=== PATIENT | female | born 1995 | race African-American/Black ===

== ENCOUNTER 2024-09-09 07:34 | Emergency (ER) | payer MEDICAID, OTHER ==
[~2024-09-09] VITALS: Ht 165.1 cm; Wt 113.0 kg
[~2024-09-09 07:34] MED LIST: DOXY-286 PO
[2024-09-09 07:46] VITALS: BP 125/67; TEMP 98.2
[2024-09-09 08:16] VITALS: PULSE 86; RESP 18; O2SAT 99
--- NOTE | 2024-09-09 08:23 | ED.PDOC ---
Musculoskeletal HPI Comments A 29 YEAR OLD FEMALE PRESENTS TO THE ED WITH COMPLAINT OF LEFT SHOULDER PAIN THAT RADIATES DOWN LEFT ARM AND CONSTIPATION. PATIENT STATES SHE HAS BEEN EXPERIENCING LEFT SHOULDER PAIN THAT RADIATES DOWN HER LEFT ARM OFF AND ON FOR THE PAST FEW MONTHS WITH HER PAIN RETURNING AGAIN YESTERDAY. PATIENT NOTES SHE HAS ALSO BEEN EXPERIENCING CONSTIPATION DUE TO TAKING IRON SUPPLEMENTS FOR THE PAST FEW DAYS. PATIENT DENIES FEVER, CHILLS, SHORTNESS OF BREATH, CHEST PAIN, ABDOMINAL PAIN, NAUSEA, VOMITING, HEADACHE, OR OTHER COMPLAINTS. NO OTHER SYMPTOMS OR MODIFYING FACTORS AT THIS TIME. PATIENT IS ALERT, ORIENTED X 4, AND HAS STEADY GAIT. Chief Complaint: Upper Extremity Reviewed Notes: Nurses Notes, Medications, Allergies Allergies: Coded Allergies: NO KNOWN ALLERGIES (Unverified , 07/27/24) Home Meds Active Scripts Doxycycline Hyclate (DOXYCYCLINE HYCLATE) 100 Mg Tab, 1 TAB PO BID for 7 Days, #14 TAB 0 Refills Prov:SHELLEY HENDRIX Cole CAMARILLO 07/27/24 Information Source: Patient Mode of Arrival: Ambulatory Location: Left Extremity Location: Arm, Shoulder Timing: Days Prehospital treatment: None Severity: Moderate Able to Move Extremity: Yes Bear Weight: Fully Pain: Moderate Mechanism: No Trauma, Spontaneous Circumstances: Spontaneous Onset of Symptoms: Spontaneous Symptoms: Pain DVT Risk Factors: NONE Last Tetanus: Unknown Associated signs and symptoms: Shoulder pain, Arm pain, Other (CONSTIPATION) Past Medical History PAST MEDICAL HISTORY: Denies Surgical History: Denies all surgeries BODY FORMER History: No Pertinent BODY FORMER History Family History Family History: Reviewed,noncontributory to illness Social History Smoker: Non-Smoker Alcohol: Denies ETOH Use Drugs: Denies Drug Use Lives In: Home Constitutional: denies: chills, diaphoresis, fatigue, fever, malaise, sweats, weakness, others EENTM: denies: blurred vision, double vision, ear bleeding, ear discharge, ear drainage, ear pain, ear ringing, eye pain, eye redness, hearing loss, mouth pain, mouth swelling, nasal discharge, nose bleeding, nose congestion, nose pain, photophobia, tearing, throat pain, throat swelling, voice changes, others Respiratory: denies: cough, hemoptysis, orthopnea, SOB at rest, shortness of breath, SOB with excertion, stridor, wheezing, others Cardiovascular: denies: chest pain, dizzy spells, diaphoresis, Dyspnea on exertion, edema, irregular heart beat, left arm pain, lightheadedness, palpitations, PND, syncope, others Gastrointestinal: reports: constipated; denies: abdomen distended, abdominal pain, blood streaked bowels, diarrhea, dysphagia, difficulty swallowing, hematemesis, melena, nausea, poor appetite, poor fluid intake, rectal bleeding, rectal pain, vomiting, others Genitourinary: denies: abnormal vagina bleeding, burning, dyspareunia, dysuria, flank pain, frequency, hematuria, incontinence, pain, , vagina discharge, urgency, others Neurological: denies: dizziness, fainting, headache, left sided numbness, left sided weakness, numbness, paresthesia, pre-existing deficit, right sided numbness, right sided weakness, seizure, speech problems, tingling, tremors, weakness, others Musculoskeletal: reports: others (LEFT SHOULDER PAIN THAT RADIATES DOWN LEFT ARM); denies: back pain, gout, joint pain, joint swelling, muscle pain, muscle stiffness, neck pain Integumetry: denies: bruises, change in color, change in hair/nails, dryness, laceration, lesions, lumps, rash, wounds, others Allergic/Immunocompromised: denies: Difficulty Healing, Frequent Infections, Hives, Itching, others Hematologic/Lymphatic: denies: anemia, blood clots, easy bleeding, easy bruisi ng, swollen glands, others Endocrine: denies: excessive hunger, excessive sweating, excessive thirst, exce ssive urination, flushing, intolerance to cold, intolerance to heat, unexplained weight gain, unexplained weight loss, others Psychiatric: denies: anxiety, bipolar disorder, depression, hopeless, panic disorder, schizophrenia, sleepless, suicidal, others All Other Systems: Reviewed and Negative Was a procedure done? Was a procedure done?: No Differential Diagnosis EXT Differential Diagnosis: Sprain, DJD, Strain Other Differential Diagnosis MUSCLE SPASM X-Ray, Labs, Meds, VS Vital Signs Date Time Temp Pulse Resp B/P (MAP) Pulse Ox O2 Delivery O2 Flow Rate FiO2 09/09/24 08:16 86 18 99 Room Air 09/09/24 07:46 98.2 107 18 125/67 (86) 100 98.2 09/09/24 07:46 98.2 107 18 125/67 (86) 100 Images Reviewed?: Images reviewed and evaluated by me Reevaluation 1ST: Improved Patient Education/Counseling: Diagnosis, Treatment, Need For Follow Up Family Education/Counseling: Diagnosis, Treatment, Need For Follow Up Departure 1 Departure Disposition: 01 HOME / SELF CARE / HOMELESS Condition: Stable Additional Instructions: FOLLOW-UP WITH PCP IN 1 TO 2 DAYS. TAKE MEDICATIONS PRESCRIBED. RETURN TO ED FOR ANY NEW OR WORSENING SYMPTOMS. Discharged With: Self Critical Care Note Critical Care Time?: No Stability Stability form required: No I personally scribed for SHAYNA ESTEVEZ ([email or web address]) on 09/09/24 at 08:23. Electronically submitted by Robbie Shrestha ([email or web address]). I personally scribed for SHAYNA ESTEVEZ ([email or web address]) on 09/09/24 at 08:38. Electronically submitted by Robbie Shrestha ([email or web address]). SHAYNA ESTEVEZ Sep 09, 2024 08:23
--- NOTE | 2024-09-09 08:40 | ED.PDOC ---
DATA REPORTING ANALYST HPI Comments A 29 YEAR OLD FEMALE PRESENTS TO THE ED WITH COMPLAINT OF VAGINAL DISCHARGE. PATIENT STATES SHE HAS BEEN EXPERIENCING VAGINAL DISCHARGE THAT IS WHITE IN COLOR AND PAINFUL URINATION FOR THE PAST 1 WEEK. PATIENT DENIES HEMATURIA, FLANK PAIN, FEVER, CHILLS, SHORTNESS OF BREATH, CHEST PAIN, ABDOMINAL PAIN, NAUSEA, VOMITING, HEADACHE, OR OTHER COMPLAINTS. NO OTHER SYMPTOMS OR MODIFYING FACTORS AT THIS TIME. PATIENT IS ALERT, ORIENTED X 4, AND HAS STEADY GAIT. Chief Complaint: Vaginal Discharge Time Seen by MD: 07:53 Reviewed Notes: Nurses Notes, Medications, Allergies Allergies: Coded Allergies: NO KNOWN ALLERGIES (Unverified , 07/27/24) Home Meds Active Scripts Doxycycline (Monohydrate) (Doxycycline) 100 Mg Cap, 100 MG PO BID, #30 CAP Prov:SHAYNA ESTEVEZ 09/09/24 Metronidazole (Flagyl) 500 Mg Tab, 500 MG PO TID for 7 Days, #21 TAB Prov:SHAYNA ESTEVEZ 09/09/24 Doxycycline Hyclate (DOXYCYCLINE HYCLATE) 100 Mg Tab, 1 TAB PO BID for 7 Days, #14 TAB 0 Refills Prov:SHELLEY HENDRIX NP 07/27/24 Information Source: Patient Timing: Days Severity: Moderate Vaginal Discharge: White Vaginal Lesions: None Vaginal Mass: None Onset Of Mass/Bleeding: Spontaneous Sexual Activity: Sexually Active Last Consensual [place]: Unknown Control: None Blood Type: Unknown Symptoms of Possible : None Associated Signs and Symptoms: Vaginal Discharge Past Medical History PAST MEDICAL HISTORY: Denies Surgical History: Denies all surgeries COMMERCIAL SOLAR SALES CONSULTANT History: No Pertinent COMMERCIAL [employer] SALES CONSULTANT History Family History Family History: Reviewed,noncontributory to illness Social History Smoker: Non-Smoker Alcohol: Denies ETOH Use Drugs: Denies Drug Use Lives In: Home Constitutional: denies: chills, diaphoresis, fatigue, fever, malaise, sweats, weakness, others EENTM: denies: blurred vision, double vision, ear bleeding, ear discharge, ear drainage, ear pain, ear ringing, eye pain, eye redness, hearing loss, mouth pain, mouth swelling, nasal discharge, nose bleeding, nose congestion, nose pain, photophobia, tearing, throat pain, throat swelling, voice changes, others Respiratory: denies: cough, hemoptysis, orthopnea, SOB at rest, shortness of breath, SOB with excertion, stridor, wheezing, others Cardiovascular: denies: chest pain, dizzy spells, diaphoresis, Dyspnea on exertion, edema, irregular heart beat, left arm pain, lightheadedness, palpitations, PND, syncope, others Gastrointestinal: denies: abdomen distended, abdominal pain, blood streaked bowels, constipated, diarrhea, dysphagia, difficulty swallowing, hematemesis, melena, nausea, poor appetite, poor fluid intake, rectal bleeding, rectal pain, vomiting, others Genitourinary: reports: burning, dysuria, vagina discharge; denies: abnormal vagina bleeding, dyspareunia, flank pain, frequency, hematuria, incontinence, pain, , urgency, others Neurological: denies: dizziness, fainting, headache, left sided numbness, left sided weakness, numbness, paresthesia, pre-existing deficit, right sided numbness, right sided weakness, seizure, speech problems, tingling, tremors, wea kness, others Musculoskeletal: denies: back pain, gout, joint pain, joint swelling, muscle pain, muscle stiffness, neck pain, others Integumetry: denies: bruises, change in color, change in hair/nails, dryness, l aceration, lesions, lumps, rash, wounds, others Allergic/Immunocompromised: denies: Difficulty Healing, Frequent Infections, Hives, Itching, others Hematologic/Lymphatic: denies: anemia, blood clots, easy bleeding, easy bruising, swollen glands, others Endocrine: denies: excessive hunger, excessive sweating, excessive thirst, excessive urination, flushing, intolerance to cold, intolerance to heat, unexplained weight gain, unexplained weight loss, others Psychiatric: denies: anxiety, bipolar disorder, depression, hopeless, panic disorder, schizophrenia, sleepless, suicidal, others All Other Systems: Reviewed and Negative Physical Exam General Appearance: No Apparent Distress, Normal HEENT: Normal ENT Inspection, PERRL/EOMI, Pharynx Normal, TMs Normal Neck: Full Range of Motion, Non-Tender, Normal, Normal Inspection Respiratory: Chest Non-Tender, Lungs Clear, No Accessory Muscle Use, No Respiratory Distress, Normal Breath Sounds Cardiovascular: No Edema, No JVD, No Murmur, No Gallop, Normal Peripheral Pulses, Regular Rate/Rhythm Breast Exam: Deferred Gastrointestinal: No Organomegaly, Non Tender, No Pulsatile Mass, Normal Bowel Sounds, Soft Genitalia: Deferred Pelvic: Discharge (YELLOW VAGINAL DISCHARGE WITH ERYTHEMA VAGINAL, NO VAGINAL SKIN RASH AND OPEN WOUND. ), Normal Adnexa Rectal: Deferred Extremities: No calf tenderness, Normal capillary refill, Normal inspection, Normal range of motion, Non-tender, No pedal edema Musculoskeletal : Apperance: Normal Neurologic: Alert, special education paraprofessional II-XII nml as Tested, No Motor Deficits, Normal Affect, Normal Mood, No Sensory Deficits Cerebellar Function: Normal Reflexes: Normal Skin: Dry, Normal Color, Warm Peripheral Pulses: 2+ carotid (R), 2+ carotid (L) Lymphatic: No Adenopathy Was a procedure done? Was a procedure done?: No Differential Diagnosis (COMMERCIAL [employer] SALES CONSULTANT) Vaginal Bleeding: N/A Mass / Lesion: N/A Vaginal Discharge: UTI, Vaginitis - Bacterial, Vaginitis - Candidal, Vaginitis - Trichomonas X-Ray, Labs, Meds, VS Vital Signs Date Time Temp Pulse Resp B/P (MAP) Pulse Ox O2 Delivery O2 Flow Rate FiO2 09/09/24 08:16 86 18 99 Room Air 09/09/24 07:46 98.2 107 18 125/67 (86) 100 98.2 09/09/24 07:46 98.2 107 18 125/67 (86) 100 Lab Test 09/09/24 08:00 Range/Units Urine Color Pending Urine Clarity Pending Urine pH Pending Urine Specific [place] Pending Urine Protein Pending Urine Ketones Pending Urine Blood Pending Urine Nitrite Pending Urine Bilirubin Pending Urine Urobilinogen Pending Urine Leukocyte Esterase Pending Urine RBC Pending Urine WBC Pending Urine Squamous Epithelial Cells Pending Urine Bacteria Pending Urine Glucose Pending Urine Test Pending Vaginal WBC (Wet Prep) Rare Vaginal RBC (Wet Prep) None seen Vaginal Epithelial Cells (Wet Prep) Moderate Vaginal Bacteria (Wet Prep) Moderate Vaginal Trichomonas (Wet Prep) Not present Vaginal Yeast (Wet Prep) None seen Vaginal Clue Cells (Wet Prep) None seen Chlamydia trachomatis (RON) Pending Neisseria gonorrhoeae (RON) Pending Current Medications Medications (Trade) Dose Ordered Sig/Raudel Route Start Time Stop Time Status Last Admin Ceftriaxone Sodium (Rocephin) 1,000 mg ONCE ONCE IM 09/09/24 08:45 09/09/24 08:46 DC 09/09/24 08:56 X-Ray, Labs, Meds, VS Comment LABS ORDERED: UA, URINE , WET MOUNT, CHLAMYDIA/GC AMPLIFICATION REVIEWED AND INTERPRETED RESULTS: WM BACTERIA MODERATE TREATMENT: ROCEPHIN 1 G IM Time of 1ST Reevaluation: : Reevaluation 1ST: Improved Patient Education/Counseling: Diagnosis, Treatment, Need For Follow Up Family Education/Counseling: Diagnosis, Treatment, Need For Follow Up Medical Screening: No EMC Exist At This Time Departure 1 Departure Time of Disposition: Impression: Primary Impression: Bacterial vaginitis Additional Impression: Screening for STDs (sexually transmitted diseases) Disposition: HOME / SELF CARE / HOMELESS Condition: Stable Additional Instructions: FOLLOW-UP WITH PCP IN 1 TO 2 DAYS. TAKE MEDICATIONS PRESCRIBED. RETURN TO ED FOR ANY NEW OR WORSENING SYMPTOMS. e-Prescriptions Doxycycline (Monohydrate) (Doxycycline) 100 Mg Cap 100 MG PO BID, #30 CAP Prov: SHAYNA ESTEVEZ 09/09/24 Metronidazole (Flagyl) 500 Mg Tab 500 MG PO TID for 7 Days, #21 TAB Prov: SHAYNA ESTEVEZ 09/09/24 Discharged With: Self, Relative Critical Care Note Critical Care Time?: No Stability Stability form required: No I personally scribed for SHAYNA ESTEVEZ ([email or web address]) on 09/09/24 at 08:40. Electronically submitted by Robbie Shrestha ([email or web address]). I personally scribed for SHAYNA ESTEVEZ ([email or web address]) on 09/09/24 at 09:23. Electronically submitted by Robbie Shrestha ([email or web address]). SHAYNA ESTEVEZ Sep 09, 2024 08:40
[2024-09-09 08:49] LABS: Urine Bacteria None Seen /hpf (None Seen)
[2024-09-09] MEDS: cefTRIAXone SOD 1,000 MG VL IM ONE (08:56)
[2024-09-09 09:07] LABS: Vaginal Bacteria Moderate; Vaginal Clue Cells None Seen; Vaginal Epithelial Cells Moderate; Vaginal Trichomonas Not Present
[2024-09-09] MEDS ORDERED: METR-344 PO (09:28)
[2024-09-09] MEDS ORDERED: DOXY1CAP58 PO (09:28)
[2024-09-09 09:41] LABS: Urine Blood Negative /uL (Negative); Urine Clarity Clear (Clear); Urine Color Light-Yellow (Yellow); Urine Protein, UAD Negative (Negative); Urine Specific Gravity 1.024 (1.001-1.035); Urine Urobilinogen Normal (Negative); Urine WBC 1 /hpf (0 - 5); Urine pH 6.5 (5.0-9.0)
[2024-09-11 12:06] LABS: Chlamydia Trachomatis, NAA Positive (Negative); Neisseria gonorrhoeae, NAA Negative (Negative)
== END 2024-09-09 09:37 | disposition home or self-care (01) ==
LOC: ER 07:34
DX: N76.0 Acute vaginitis (principal); B96.89 Other specified bacterial agents as the cause of diseases classified elsewhere; Z11.3 Encounter for screening for infections with a predominantly sexual mode of transmission
CPT/HCPCS: 81001; 81025; 87210; 87491; 87591; 96372; 99283; J0696

== ENCOUNTER 2025-07-03 05:58 | Emergency (ER) | payer MEDICAID, OTHER ==
[~2025-07-03] VITALS: Ht 167.6 cm; Wt 86.8 kg
[~2025-07-03 05:58] MED LIST changes: +DOXY1CAP58 PO; +METR-344 PO
[2025-07-03 06:04] VITALS: BP 149/98; PULSE 98; RESP 18; TEMP 98.9; O2SAT 99
== END 2025-07-03 07:49 | disposition left against medical advice (07) ==
LOC: ER 05:58
DX: R20.2 Paresthesia of skin (principal); Z53.21 Procedure and treatment not carried out due to patient leaving prior to being seen by health care provider